=== PATIENT | female | born 1950 | race Caucasian/White ===

== ENCOUNTER 2019-01-21 07:04 | Emergency (ER) | payer MEDICARE ==
[2019-01-21 07:19] VITALS: RESP 16; TEMP 98.4
--- NOTE | 2019-01-21 07:29 | ED ---
Female Urogenital HPI - General Chief complaint: Urogenital Stated complaint: Female Time Seen by Provider: 01/21/19 07:19 Source: patient, RN notes reviewed Mode of arrival: ambulatory Limitations: no limitations - History of Present Illness Initial comments: 68-year-old female presents emergency Department chief complaint of dysuria, hematuria and urinary frequency. Patient states that this has been going on for last few days. Patient states she drinks and cranberry juice and felt better went away but symptoms have returned. Patient states she talked to her friend who is a urologist recommended have her urine checked. Patient has no point abdominal pain, back pain, chest pain, shortness breath, flank pain or fevers or chills. Patient does have a history of hypertension and states that she has white coat syndrome. Patient does take hydrocortisone thiazide, Toprol and lisinopril at nighttime. Patient states she did take her medication. Patient states she expected her blood pressure to be elevated. - Related Data Previous Rx's Medication Instructions Recorded Cephalexin [Keflex] 500 mg PO Q8HR #30 cap 01/21/19 Phenazopyridine [Pyridium] 200 mg PO TID #6 tablet 01/21/19 Allergies Allergy/AdvReac Type Severity Reaction Status Date / Time No Known Allergies Allergy Verified 01/21/19 07:19 Review of Systems ROS Statement: Those systems with pertinent positive or pertinent negative responses have been documented in the HPI. ROS Other: All systems not noted in ROS Statement are negative. Past Medical History Past Medical History: Hypertension History of Any Multi-Drug Resistant Organisms: None Reported Past Surgical History: Appendectomy, Hysterectomy Past Psychological History: No Psychological Hx Reported Smoking Status: Never smoker Past Alcohol Use History: Daily Past Drug Use History: Marijuana General Exam Limitations: no limitations General appearance: alert, in no apparent distress Head exam: Present: atraumatic, normocephalic, normal inspection Respiratory exam: Present: normal lung sounds bilaterally. Absent: respiratory distress, wheezes, rales, rhonchi, stridor Cardiovascular Exam: Present: regular rate, normal rhythm, normal heart sounds. Absent: systolic murmur, diastolic murmur, rubs, gallop, clicks GI/Abdominal exam: Present: soft, normal bowel sounds. Absent: distended, tenderness, guarding, rebound, rigid Back exam: Absent: CVA tenderness (R), CVA tenderness (L) Neurological exam: Present: alert, oriented X3, CN II-XII intact Skin exam: Present: warm, dry, intact, normal color. Absent: rash Course Vital Signs 01/21/19 07:13 Temperature 98.4 F Pulse Rate 75 Respiratory 16 Rate Blood Pressure 207/110 O2 Sat by Pulse 98 Oximetry Medical Decision Making - Medical Decision Making 68-year-old female sent emergency from chief complaint of urinary symptoms. Patient has no flank pain no abdominal plain and no fevers or chills. Patient does have evidence of urinary tract infection. Patient was placed on oral antibiotics. Patient follow-up with PCP and return for any worsening symptoms. - Lab Data Lab Results 01/21/19 Range/Units 07:14 Urine Color Light Red Urine Appearance Cloudy H (Clear) Urine pH 6.0 (5.0-8.0) Ur Specific [place] 1.016 (1.001-1.035) Urine Protein 2+ H (Negative) Urine Glucose (UA) Negative (Negative) Urine Ketones Negative (Negative) Urine Blood Large H (Negative) Urine Nitrite Negative (Negative) Urine Bilirubin Negative (Negative) Urine Urobilinogen <2.0 (<2.0) mg/dL Ur Leukocyte Esterase Large H (Negative) Urine RBC >182 H (0-5) /hpf Urine WBC >182 H (0-5) /hpf Urine WBC Clumps Occasional H (None) /hpf Urine Bacteria Occasional H (None) /hpf Urine Mucus Rare H (None) /hpf Disposition Clinical Impression: Urinary tract infection Disposition: HOME SELF-CARE Condition: Stable Instructions (If sedation given, give patient instructions): Urinary Tract Infection in Women (ED) Additional Instructions: Please return to the Emergency Department if symptoms worsen or any other concerns. Prescriptions: Cephalexin [Keflex] 500 mg PO Q8HR #30 cap Phenazopyridine [Pyridium] 200 mg PO TID #6 tablet Is patient prescribed a controlled substance at d/c from ED?: No Referrals: None,Stated [Primary Care Provider] - 1-2 days Time of Disposition: 08:07
[2019-01-21 07:55] LABS: Appearance,Urine Cloudy (Clear); Bacteria,Urine Occasional /hpf; Bilirubin,Urine Negative (Negative); Blood,Urine Large (Negative); Color,Urine Light Red; Glucose,Urine (UA) Negative (Negative); Ketones,Urine Negative (Negative); Leukocyte Esterase,Urine Large (Negative); Mucus,Urine Rare /hpf; Nitrite,Urine Negative (Negative); Protein,Urine 2+ (Negative); RBC,Urine >182 /hpf (0-5); Specific Gravity,Urine 1.016 (1.001-1.035); Urobilinogen,Urine <2.0 mg/dL (<2.0)
[2019-01-21] MEDS ORDERED: cefTRIAXone 1,000 MG VIAL (IM USE) IM STA (08:08)
[2019-01-21 08:33] VITALS: BP 154/102; PULSE 58
== END 2019-01-21 08:57 | disposition home or self-care (01) ==
LOC: EC 07:04
DX: N39.0 Urinary tract infection, site not specified (principal); Z90.49 Acquired absence of other specified parts of digestive tract; Z90.710 Acquired absence of both cervix and uterus
CPT/HCPCS: 81001; 87086; 87077; 87186; 99283; 96372; J0696

== ENCOUNTER 2020-01-19 12:03 | Emergency (ER) | payer MEDICARE ==
[2020-01-19 12:16] VITALS: BP 212/98; PULSE 71; RESP 18; TEMP 98.6
--- NOTE | 2020-01-19 12:20 | ED ---
Female Urogenital HPI - General Chief complaint: Urogenital Stated complaint: Infection Time Seen by Provider: 01/19/20 12:19 Source: patient, RN notes reviewed, old records reviewed Mode of arrival: ambulatory Limitations: no limitations - History of Present Illness Initial comments: This is a 69-year-old female DF for evaluation. Patient coming in for dysuria burning with urination and decreased urinary output. Patient with some urge the feeling like she has to go urinate but is not getting anything out when she does. No fevers no abdominal pain. Patient does admit to new sexual partner, denies multiple sexual partners. Does have prior history of UTI this does feel similar. No known ALLERGIES to medications. Patient has had elevated blood pressure in the past but does not take medication MD Complaint: dysuria -: days(s) Location: perineum Radiation: non-radiating Severity: mild Severity scale (1-10): 3 Quality: burning Consistency: constant Improves with: none Worsens with: urination Patient : No Associated Symptoms: denies other symptoms - Related Data Home Medications Medication Instructions Recorded Confirmed Hydrochlorothiazide 25 mg PO HS 01/19/20 01/19/20 Lisinopril [Zestril] 20 mg PO HS 01/19/20 01/19/20 Metoprolol Succinate (ER) [Toprol 100 mg PO HS 01/19/20 01/19/20 Xl] Previous Rx's Medication Instructions Recorded Nitrofurantoin Monohyd/M-Cryst 100 mg PO Q12HR #10 cap 01/19/20 [Macrobid] Allergies Allergy/AdvReac Type Severity Reaction Status Date / Time No Known Allergies Allergy Verified 01/19/20 13:24 Review of Systems ROS Statement: Those systems with pertinent positive or pertinent negative responses have been documented in the HPI. ROS Other: All systems not noted in ROS Statement are negative. Past Medical History Past Medical History: Hypertension History of Any Multi-Drug Resistant Organisms: None Reported Past Surgical History: Appendectomy, Hysterectomy Past Psychological History: No Psychological Hx Reported Smoking Status: Never smoker Past Alcohol Use History: Daily, Occasional Past Drug Use History: Marijuana General Exam Limitations: no limitations General appearance: alert, in no apparent distress Head exam: Present: atraumatic, normocephalic, normal inspection Eye exam: Present: normal appearance, PERRL, EOMI. Absent: scleral icterus, conjunctival injection, periorbital swelling ENT exam: Present: normal exam, mucous membranes moist Neck exam: Present: normal inspection. Absent: tenderness, meningismus, lymphadenopathy Respiratory exam: Present: normal lung sounds bilaterally. Absent: respiratory distress, wheezes, rales, rhonchi, stridor Cardiovascular Exam: Present: regular rate, normal rhythm, normal heart sounds. Absent: systolic murmur, diastolic murmur, rubs, gallop, clicks GI/Abdominal exam: Present: soft, normal bowel sounds. Absent: distended, tenderness, guarding, rebound, rigid Extremities exam: Present: normal inspection, full ROM, normal capillary refill. Absent: tenderness, pedal edema, joint swelling, calf tenderness Back exam: Present: normal inspection Neurological exam: Present: alert, oriented X3, CN II-XII intact Psychiatric exam: Present: normal affect, normal mood Skin exam: Present: warm, dry, intact, normal color. Absent: rash Course Vital Signs 01/19/20 12:12 Temperature 98.6 F Pulse Rate 71 Respiratory 18 Rate Blood Pressure 212/98 O2 Sat by Pulse 98 Oximetry - Reevaluation(s) Reevaluation #1: 01/19/20 12:59 Medical records reviewed Reevaluation #2: 01/19/20 12:59 Patient is in no distress Medical Decision Making - Medical Decision Making 59 female to the ER for evaluation of burning with urination. Patient is positive urinary tract infection will symptomatically, we'll culture urine discharged home - Lab Data Lab Results 01/19/20 Range/Units 12:36 Urine Color Red Urine Appearance Cloudy H (Clear) Urine pH 6.0 (5.0-8.0) Ur Specific [place] 1.018 (1.001-1.035) Urine Protein 2+ H (Negative) Urine Glucose (UA) Negative (Negative) Urine Ketones Negative (Negative) Urine Blood Large H (Negative) Urine Nitrite Negative (Negative) Urine Bilirubin Negative (Negative) Urine Urobilinogen <2.0 (<2.0) mg/dL Ur Leukocyte Esterase Large H (Negative) Urine RBC 130 H (0-5) /hpf Urine WBC 18 H (0-5) /hpf Urine Bacteria Rare H (None) /hpf Disposition Clinical Impression: Urinary tract infection, Hematuria Disposition: HOME SELF-CARE Condition: Good Instructions (If sedation given, give patient instructions): Urinary Tract I nfection in Women (ED) Prescriptions: Nitrofurantoin Monohyd/M-Cryst [Macrobid] 100 mg PO Q12HR #10 cap Is patient prescribed a controlled substance at d/c from ED?: No Referrals: Neelam Mandel MD [Primary Care Provider] - 1-2 days
[2020-01-19 13:08] LABS: Appearance,Urine Cloudy (Clear); Bacteria,Urine Rare /hpf; Bilirubin,Urine Negative (Negative); Blood,Urine Large (Negative); Color,Urine Red; Glucose,Urine (UA) Negative (Negative); Ketones,Urine Negative (Negative); Leukocyte Esterase,Urine Large (Negative); Nitrite,Urine Negative (Negative); Protein,Urine 2+ (Negative); RBC,Urine 130 /hpf (0-5); Specific Gravity,Urine 1.018 (1.001-1.035); Urobilinogen,Urine <2.0 mg/dL (<2.0); WBC,Urine 18 /hpf (0-5)
[2020-01-19] MEDS ORDERED: NITROFURANTOIN MONOHYD/M-CRYST 100 MG CAP PO STA (13:31)
== END 2020-01-19 13:45 | disposition home or self-care (01) ==
LOC: EC 12:03
DX: N39.0 Urinary tract infection, site not specified (principal); I10 Essential (primary) hypertension; Z79.899 Other long term (current) drug therapy
CPT/HCPCS: 81001; 87086; 87491; 87591; 99284

== ENCOUNTER → 2022-07-19 | Outpatient (CLI) | payer MEDICARE ==
[2022-07-19 13:25] LABS: INR 0.9 (<1.2); Partial Thromboplastin Time 25.2 sec (22.0-30.0); Prothrombin Time 9.6 sec (9.0-12.0)
[2022-07-19 17:52] LABS: HCT 43.3 % (37.2-46.3); HGB 14.7 g/dL (12.0-15.0); MCH 30.2 pg (27.0-32.0); MCHC 33.9 g/dL (32.0-37.0); MCV 89.1 fL (80.0-97.0); NRBC Per 100 WBC 0 /100 WBCS (0.0-0.0); Platelet Count 274 X 10*3/uL (140-440); RBC 4.86 X 10*6/uL (4.10-5.20); RDW 12.5 % (11.5-14.5); WBC 11.35 X 10*3/uL (4.50-10.00)
[2022-07-19 18:01] LABS: African American GFR (CKD) 96.2 (60.0-200.0); Albumin 4.7 g/dL (3.8-4.9); Albumin/Globulin Ratio 1.59 (1.60-3.17); Anion Gap 11.1 mmol/L (10.00-18.00); BUN/Creat Ratio 19.78 Ratio (12.00-20.00); Blood Urea Nitrogen 14.5 mg/dL (9.0-27.0); Carbon Dioxide 28.5 mmol/L (20.0-27.5); Globulin 2.9 g/dL (1.6-3.3); Potassium 3.4 mmol/L (3.5-5.5); Total Bilirubin 0.4 mg/dL (0.30-1.20); Total Protein 7.6 g/dL (6.2-8.2)
[2022-07-19 18:25] LABS: Appearance,Urine Clear (Clear); Bilirubin,Urine Negative (Negative); Blood,Urine Negative (Negative); Color,Urine Yellow (Yellow); Ketones,Urine Negative (Negative); Nitrite,Urine Negative (Negative); PH, Urine 6.5 (5.0-8.0); Specific Gravity,Urine 1.009 (1.001-1.030); Urobilinogen,Urine 0.2 (0.2,1.0)
== END | disposition home or self-care (01) ==
LOC: LABPAT 12:23
PROVIDERS: ATTEND Orthopaedic Surgery
DX: Z01.812 Encounter for preprocedural laboratory examination (principal); M16.11 Unilateral primary osteoarthritis, right hip
CPT/HCPCS: 36415; 80053; 81003; 85027; 85610; 85730; 87070; 93005

== ENCOUNTER 2022-07-28 08:27 | Day surgery (SDC) | payer MEDICARE, OTHER ==
[~2022-07-28 08:27] MED LIST: ACETAMINOPHEN TAB 500 MG TAB PO PRN; DEXAMETHASONE SOD PHOSPHATE 10 MG/ML 1 ML VIAL IV PRN; DOCUSATE 100 MG CAP PO PRN; FAMOTIDINE 20 MG/2 ML VIAL IVP PRN; HYDROmorphone 0.5 MG/0.5 ML SYRINGE IVP PRN; KETOROLAC 15 MG/ML 1 ML VIAL IVP PRN; LACTATED RINGERS 1,000 ML IV SCH; LIDOCAINE 1% (10MG/ML) FOR IV START INTRADERMA PRN; ONDANSETRON 4 MG/2 ML VIAL IVP PRN; ROPIVACAINE/EPI/CLONIDINE/KET 50 ML SYRINGE MISCELLANE PRN; TRANEXAMIC ACID IN NACL,ISO-OS 1,000 MG in SALINE 1 100ML.BAG IVPB PRN; oxyCODONE ER 10 MG TAB.ER.12H PO PRN
[2022-07-28 09:06] VITALS: RESP 16
[2022-07-28] MEDS ORDERED: MIDAZOLAM 2 MG/2 ML VIAL IVP ONE (09:38)
[2022-07-28] MEDS ORDERED: hydrALAZINE HCL 20 MG/ML 1 ML VIAL IVP ONE ×2 (09:52→13:17)
[2022-07-28 09:57] LABS: ALT 23 U/L (4-34); AST 33 U/L (14-36); African American GFR (CKD) >90 (>60 ml/min/1.73 sqM); Albumin 4.7 g/dL (3.5-5.0); Alkaline Phosphatase 73 U/L (38-126); Anion Gap 9 mmol/L; Blood Urea Nitrogen 19 mg/dL (7-17); Calcium 9.5 mg/dL (8.4-10.2); Carbon Dioxide 27 mmol/L (22-30); Chloride 98 mmol/L (98-107); Glucose 108 mg/dL (74-99); Non-African American GFR(CKD) 89 (>60 ml/min/1.73 sqM); Sodium 134 mmol/L (137-145); Total Bilirubin 0.8 mg/dL (0.2-1.3); Total Protein 7.8 g/dL (6.3-8.2)
[2022-07-28 10:01] LABS: Potassium 4.1 mmol/L (3.5-5.1)
[2022-07-28] MEDS ORDERED: ROPIVACAINE 5 MG/ML 30 ML VIAL ONE (10:02)
[2022-07-28] MEDS ORDERED: PROPOFOL 10 MG/ML 20 ML VIAL IV ONE (10:02)
[2022-07-28] MEDS ORDERED: MIDAZOLAM 2 MG/2 ML VIAL ONE (10:02)
[2022-07-28] MEDS ORDERED: NEOSTIGMINE 1 MG/ML 10 ML VIAL ONE (10:02)
[2022-07-28] MEDS ORDERED: fentaNYL (PF) 50 MCG/ML 2 ML AMP ONE (10:02)
[2022-07-28] MEDS ORDERED: ROCURONIUM 10 MG/ML (5 ML VIAL) IV ONE (10:02)
[2022-07-28] MEDS ORDERED: KETAMINE 10 MG/ML 20 ML VIAL ONE (10:02)
[2022-07-28] MEDS ORDERED: PHENYLEPHRINE-0.9% NACL SYG 1,000 MCG/10 ML SYRINGE ONE (10:02)
[2022-07-28] MEDS ORDERED: LIDOCAINE 2% INJ 20 MG/ML (2 ML VIAL) ONE (10:02)
[2022-07-28] MEDS ORDERED: SUCCINYLCHOLINE CHLORIDE 200 MG/10 ML VIAL IV ONE (10:02)
[2022-07-28] MEDS ORDERED: TRANEXAMIC ACID IN NACL,ISO-OS 1,000 MG/100 ML BAG ONE (10:02)
[2022-07-28] MEDS ORDERED: GLYCOPYRROLATE 0.2 MG/ML 2 ML VIAL ONE (10:02)
--- NOTE | 2022-07-28 10:24 | P.ANPRN ---
Procedure Note - Anesthesia - Nerve Block Performed Right [place] Single Time Out Performed: Yes ([id number]) Date of Procedure: 07/28/22 Procedure Start Time: 09:38 Procedure Stop Time: 09:43 Location of Patient: PreOp Indication: Acute Post-Operative Pain, Requested by Surgeon Specifically requested for management of pain by DrJordy: David Sheets Sedation Type: Sedate with meaningful contact maintained Preparation: Sterile Prep Position: Supine Catheter: None Needle Types: Pajunk Ultrasound used to visualize needle placement: Yes Ultrasound used to observe medication spread: Yes Injectate: 0.5% Ropivacaine (see comment for volume) (30cc) Blood Aspirated: No Pain Paresthesia on Injection Noted: No Resistance on Injection: Normal Image Stored and Saved: Yes Events: Uneventful and Well Tolerated
--- NOTE | 2022-07-28 12:04 | XR ---
Fluoroscopy INDICATION: Pain FINDINGS: Fluoroscopy time: 46 seconds. Images obtained: 6. IMPRESSIONS: 1. Documentation of fluoroscopy.
[2022-07-28] MEDS ORDERED: LACTATED RINGERS 1,000 ML IV ONE (12:13)
--- NOTE | 2022-07-28 12:21 | P.OP ---
Date of Procedure: 07/28/22 Preoperative Diagnosis: Severe right hip osteoarthritis Postoperative Diagnosis: Same Procedure(s) Performed: Right direct anterior total hip arthroplasty Implants: 1. [place] Trident II Acetabular Cup, Size #48 2. Denys Insignia Size #4 Femoral Stem, High Offset 3. Biolox delta femoral head, 36 mm, - 2.5 neck Anesthesia: GETA, regional Surgeon: David Sheets Flight Information Expediter #1: Kiel Lerma Estimated Blood Loss (ml): 100 IV fluids (ml): 1,000 Pathology: other (Routine gross and or histopathologic evaluation not indicated. Findings consistent with osteoarthritis.) Condition: stable Disposition: PACU Indications for Procedure: I had a long discussion with the patient in the office on the potential risks and complications of an elective total hip replacement through a direct anterior approach. Risks discussed include, but are certainly not limited to, risks from anesthesia, superficial infection requiring local wound care or antibiotics, deep shania-prosthetic joint infection and the treatment required to eradicate infection, intraoperative fracture, postoperative periprosthetic fracture, damage to local blood vessels or nerves particularly the lateral femoral cutaneous nerve, delayed wound healing requiring local wound care or possibly surgical debridement, hip dislocation, leg length discrepancy, soft tissue irritation around the total hip implant such as iliopsoas tendinitis or trochanteric bursitis, wear and osteolysis from the implants, squeaking or audible noises, groin pain, thigh pain, heterotopic ossification, stiffness, aseptic loosening of the implants, dissatisfaction with surgical outcome, need for revision surgery, DVT, PE, swelling of the operative extremity, acute coronary event, stroke, failure to thrive, and possibly loss of life or limb. The patient understands that while these are the most common complications after an elective hip replacement there are certainly other less common complications possible. They were given ample time to ask questions regarding the potential complications of a hip replacement. Following our discussion the patient provided their verbal and written consent to go forward with an elective total hip replacement. Operative Findings: Severe right hip arthritis Description of Procedure: The patient was identified in the preoperative holding area and the correct hip was marked with my initials. I reviewed the procedure and consent with the patient. All of their questions were answered. The patient was then brought back into the operating room by anesthesia. While on the [facility] anesthesia was administered by the anesthesia team. Preoperative antibiotics and tranexamic acid were also given. After the patient was under anesthesia I examined their ankles to determine their preoperative leg length discrepancy. The skin over the anterior aspect of the hip was shaved to remove hair over the site of planned incision. Both feet and ankles were padded with webril and boots for the [place] were applied. The patient was then carefully transferred onto the [place] table. A perineal post was immediately placed. The arms were placed on arm holders and were well-padded. Both boots were secured to the spars on the [place] table. The patient was positioned so that the pelvis was centered over the post. Nonsterile drapes were applied. A timeout was performed identifying the correct patient, operative extremity, and procedure. At this point fluoroscopy was brought in to take preoperative images of the pelvis and operative hip. Using the standing AP pelvis from the office as a template, a comparable image was obtained with fluoroscopy. A metallic bar was used to create a bi-ischial line for use as a reference to leg length adjustments during the procedure. Global offset was also measured on both the operative and nonoperative leg. Fluoroscopy was then brought out and a pre-scrub using a chlorhexidine scrub brush was performed. The operative limb was then prepped and draped in the standard sterile fashion. An anterior longitudinal incision was made lateral and distal to the ASIS. The skin and subcutaneous tissues were incised sharply. The underlying tensor fascia was identified and incised in its midportion. The fascia was dissected free from the underlying muscle and the muscle belly was retracted. A blunt tipped cobra retractor was placed over the superior neck under the muscle fibers of the gluteus minimus. The deep enveloping fascia of the tensor was incised. The anterior leash of vessels were then identified and cauterized. The fascia between the rectus and the capsule was then incised and the pre-capsular fat was excised. A second Cobra was placed inferior to the neck. The interval between the rectus and iliocapsularis and the hip capsule was developed and a retractor was placed carefully over the anterior rim of the acetabulum. A T-shaped anterior capsulotomy was performed. The superior capsular leaflet was left in place in the inferior capsular flap was excised. The Cobra retractors were placed intracapsularly. We then made a femoral neck osteotomy according to preoperative and intraoperative templating and confirmed the level of the osteotomy using fluoroscopic imaging. The femoral head was removed, passed off to the back table, and sized. The superior capsular flap was excised. Retractors were placed circumferentially exposing the acetabulum. We then circumferentially debrided the acetabulum free of labrum and osteophytes. The pulvinar was removed to fully visualize the cotyloid fossa. We then sequentially reamed to achieve peripheral fit and excellent bleeding subchondral bone. The socket was thoroughly irrigated. The acetabular component was impacted into the appropriate position using fluoroscopy to guide version, inclination, and depth of insertion taking care to have a comparable image of the AP pelvis to the standing image taken in the office. An excellent press-fit was achieved and final position was confirmed using fluoroscopy. The press fit was augmented with bony cancellus dome screws. The liner was then impacted into the socket. Attention was then turned to the femur. The remnant dorsal lateral capsule was excised. The short external rotators were visible and protected. A bone hook was used to confirm appropriate translation of the trochanter away from the acetabulum. The leg was then extended and adducted and the bone hook was used to elevate the femur for broaching. A box osteotome and blunt tipped canal sound was then utilized to gain access to the femoral canal. We then sequentially broached the femur in appropriate anteversion until excellent torsional stability was achieved. The neck cut was brought flush to the trial broach with a calcar planar. A trial neck and head were then placed onto the broach and the hip was atraumatically reduced under direct visualization. External rotation to 90 was performed to assess stability. Fluoroscopy was brought in. An AP and lateral fluoroscopic image of the proximal femur was obtained to assess position and fill of the trial broach. An AP of the pelvis was then obtained and matched to the preoperative image taken. A bi-ischial bar was then placed and measurements were taken to assess changes in length and offset. The hip was then carefully dislocated, the proximal femur was exposed, and the trial implants were removed. The wound and proximal femur was thoroughly irrigated using sterile saline and pulsatile lavage. The final femoral implant was dispensed and gently tapped into place generating an excellent press-fit. The trunnion was cleansed and the final head was tapped into place to engage the [place] taper. The acetabulum was irrigated and visualized to be free of debris. The hip was carefully reduced. Stability was checked clinically with external rotation to 90 and there was no evidence of instability. Final fluoroscopic images were taken. The wound was then thoroughly irrigated and soaked with a dilute Betadine rinse for 3 minutes. 3 L of sterile saline was irrigated through the wound using pulsatile lavage. Local anesthetic cocktail was injected into the soft tissues around the surgical field. The wound was then closed in layers. A sterile dressing was placed over the surgical incision. The drapes were taken down and the patient was carefully transferred off of the [place] table. Following removal of the boots the leg lengths felt acceptable. The patient was then taken to recovery room having tolerated the procedure well. Kiel Lerma PA-C was required as a skilled staffing assistant for patient positioning, surgical exposure, retraction, placement of implants, and closure of the surgical wound. PLAN: The patient can weight-bear as tolerated on the operative extremity. DVT prophylaxis with aspirin 81 mg twice a day based on preoperative risk stratification. Physical therapy for gait training. The patient is going to attempt to discharge home as an outpatient. They're okay to discharge as long as they passed physical therapy and the pain is controlled.
[2022-07-28 12:39] VITALS: TEMP 96.8
[2022-07-28] MEDS ORDERED: METOCLOPRAMIDE 5 MG/ML 2 ML VIAL IVP ONE (14:03)
[2022-07-28 16:43] VITALS: BP 153/75; PULSE 85
== END 2022-07-28 17:14 | disposition home health service (06) ==
LOC: OR 08:27
PROVIDERS: ATTEND Orthopaedic Surgery
DX: M16.11 Unilateral primary osteoarthritis, right hip (principal); G89.18 Other acute postprocedural pain; I10 Essential (primary) hypertension; F10.90 Alcohol use, unspecified, uncomplicated; F12.90 Cannabis use, unspecified, uncomplicated; F41.9 Anxiety disorder, unspecified; K91.0 Vomiting following gastrointestinal surgery; Z90.49 Acquired absence of other specified parts of digestive tract; Z90.710 Acquired absence of both cervix and uterus; Z82.49 Family history of ischemic heart disease and other diseases of the circulatory system; Z87.891 Personal history of nicotine dependence; Z79.899 Other long term (current) drug therapy; Z98.82 Breast implant status; Z88.1 Allergy status to other antibiotic agents
CPT/HCPCS: 27130; 64447; 97530; 97161; 80053; 88300; 73501; J2250; J0360; J1100; J2765; J0690; J2405; J1885; J1170; 86850; 86900; 86901

== ENCOUNTER → 2023-02-02 | Outpatient (CLI) | payer MEDICARE ==
[2023-02-02 16:17] LABS: Basophils # (A) 0.04 X 10*3/uL (0.00-0.10); Basophils % (A) 0.4 %; Eosinophils # (A) 0.19 X 10*3/uL (0.04-0.35); Eosinophils % (A) 1.9 %; HCT 43.9 % (37.2-46.3); HGB 14.6 d/dL (12.0-15.0); Lymphocytes # (A) 2.97 X 10*3/uL (0.90-5.00); Lymphocytes % (A) 30.2 %; MCH 30.2 pg (27.0-32.0); MCHC 33.3 d/dL (32.0-37.0); MCV 90.7 FL (80.0-97.0); Mean Platelet Volume 10.7 FL (9.5-12.2); Monocytes # (A) 0.57 X 10*3/uL (0.20-1.00); Monocytes % (A) 5.8 %; NRBC Per 100 WBC 0 X 10*3/uL (0.00-0.01); Neutrophils # (A) 6.02 X 10*3/uL (1.80-7.70); Neutrophils % (A) 61.4 %; Platelet Count 226 X 10*3/uL (140-440); RBC 4.84 X 10*6/uL (4.10-5.20); RDW 13.2 % (11.5-14.5); WBC 9.82 X 10*3/uL (4.50-10.00)
[2023-02-02 17:33] LABS: C Reactive Protein 0.6 mg/dL (0.00-0.80); Uric Acid 3.8 mg/dL (2.9-7.7)
[2023-02-02 17:43] LABS: Erythrocyte Sedimentation Rate 17 mm/Hr (0-30)
== END | disposition home or self-care (01) ==
LOC: LABWHC1 11:09
PROVIDERS: ATTEND Orthopaedic Surgery
DX: M25.551 Pain in right hip (principal); Z96.641 Presence of right artificial hip joint; Z47.1 Aftercare following joint replacement surgery
CPT/HCPCS: 36415; 84443; 84550; 85025; 85379; 85652; 86140

== ENCOUNTER → 2023-04-16 | Outpatient (CLI) | payer MEDICARE ==
[2023-04-17 07:09] LABS: Basophils # (A) 0.06 X 10*3/uL (0.00-0.10); Basophils % (A) 0.6 %; Eosinophils # (A) 0.25 X 10*3/uL (0.04-0.35); Eosinophils % (A) 2.6 %; HCT 45.4 % (37.2-46.3); HGB 14.6 d/dL (12.0-15.0); Lymphocytes # (A) 2.62 X 10*3/uL (0.90-5.00); Lymphocytes % (A) 26.8 %; MCHC 32.2 d/dL (32.0-37.0); MCV 93.2 FL (80.0-97.0); Mean Platelet Volume 10.7 FL (9.5-12.2); Monocytes # (A) 0.63 X 10*3/uL (0.20-1.00); Monocytes % (A) 6.4 %; NRBC Per 100 WBC 0 X 10*3/uL (0.00-0.01); Neutrophils # (A) 6.18 X 10*3/uL (1.80-7.70); Neutrophils % (A) 63.3 %; Platelet Count 219 X 10*3/uL (140-440); RBC 4.87 X 10*6/uL (4.10-5.20); RDW 12.8 % (11.5-14.5); WBC 9.77 X 10*3/uL (4.50-10.00)
[2023-04-17 07:23] LABS: Uric Acid 3.9 mg/dL (2.9-7.7)
[2023-04-17 08:21] LABS: Erythrocyte Sedimentation Rate 9 mm/Hr (0-30)
[2023-04-17 11:23] LABS: C Reactive Protein 0.9 mg/dL (0.00-0.80)
== END | disposition home or self-care (01) ==
LOC: LABWHC1 10:49
PROVIDERS: ATTEND Orthopaedic Surgery
DX: M25.551 Pain in right hip (principal); M70.61 Trochanteric bursitis, right hip; Z96.641 Presence of right artificial hip joint; Z47.1 Aftercare following joint replacement surgery
CPT/HCPCS: 36415; 84550; 85025; 85652; 86140